=== PATIENT | female | born 1975 | race Caucasian/White ===

== ENCOUNTER 2016-12-30 20:13 | Inpatient (IN) | payer BC ==
[~2016-12-30] VITALS: Ht 172.7 cm; Wt 103.1 kg
[2016-12-30 20:49] LABS: BASO # 0.1 x10^3/uL (0.0-0.2); BASO % 1 % (0-3); EOS % 2 % (0-3); HEMATOCRIT 43.7 % (36.0-47.0); HEMOGLOBIN 15.3 g/dL (12.0-15.5); LYMPH # 3.7 x10^3/uL (1.0-4.8); LYMPH % 40 % (24-48); MEAN CORPUSCULAR HEMOGLOBIN 31 pg (25-35); MEAN CORPUSCULAR HGB CONC 35 g/dL (31-37); MEAN CORPUSCULAR VOLUME 87 fL (79-100); MONO % 8 % (0-9); NEUT % 50 % (31-73); PLATELET COUNT 302 x10^3/uL (140-400); RED BLOOD COUNT 5.02 x10^6/uL (3.50-5.40); WHITE BLOOD COUNT 9.4 x10^3/uL (4.0-11.0)
[2016-12-30 21:03] LABS: CALCIUM 9.2 mg/dL (8.5-10.1); CREATININE 0.8 mg/dL (0.6-1.0); GFR 78.3; POTASSIUM 3.5 mmol/L (3.5-5.1)
[2016-12-30 21:09] LABS: ALBUMIN 3.3 g/dL (3.4-5.0); DIRECT BILIRUBIN 0.1 mg/dL (0.0-0.2); TOTAL BILIRUBIN 0.3 mg/dL (0.2-1.0); TOTAL PROTEIN 8.1 g/dL (6.4-8.2)
[2016-12-30] MEDS ORDERED: NITROGLYCERIN SUBLINGUAL 0.4 MG BOTTLE OF 25. SL PRN ×2 (21:15→22:45)
[2016-12-30] MEDS: fentaNYL PF VIAL 100 MCG/2 ML VIAL IV PRN ×2 (21:40→23:39)
[2016-12-30] MEDS ORDERED: ASPIRIN 325 MG TABLET PO ONE (22:00)
--- NOTE | 2016-12-30 22:35 | ED.ADGEN ---
Past Medical History Past Medical History: Diabetes-Type II Past Surgical History: Hysterectomy Alcohol Use: None Drug Use: None Adult General Chief Complaint Chief Complaint: CHEST PAIN HPI HPI Patient is a 41 year old woman history of type 2 diabetes mellitus which she takes metformin, obesity, tobacco abuse, who presents to the emergency department with complaint of intermittent left chest pain times one day. Patient states the pain is located in the anterior portion of her chest, also underneath her left breast, intermittent in nature, not associated with shortness of breath, nausea, vomiting, lightheadedness or dizziness, any weakness emesis or tingling. No injuries. She states it was not related to inspiration or movement. States that it seems to come and go his own volition. Denies any similar symptoms previously. No recent travel or surgery, history of DVT or PE in herself or family members, no swelling extremities. She states that her mother developed heart problems at age 30, and that her family history is "full of heart problems". She is not previously had a stress test or catheterization. She follows with a doctor in [place]. She states she was been compliant with all medications, denies any drug or alcohol abuse. Review of Systems Review of Systems Constitutional: Denies fever or chills. [] Eyes: Denies change in visual acuity. [] HENT: Denies nasal congestion or sore throat. [] Respiratory: Denies cough or shortness of breath. [] Cardiovascular: Left anterior chest pain, no edema. GI: Denies abdominal pain, nausea, vomiting, bloody stools or diarrhea. [] : Denies dysuria. [] Musculoskeletal: Denies back pain or joint pain. [] Integument: Denies rash. [] Neurologic: Denies headache, focal weakness or sensory changes. [] Endocrine: Denies polyuria or polydipsia. [] Lymphatic: Denies swollen glands. [] Psychiatric: Denies depression or anxiety. [] Current Medications Current Medications Current Medications Medications (Trade) Dose Ordered Sig/Celena Start Time Stop Time Status Last Admin Dose Admin Fentanyl Citrate (Fentanyl 2ml Vial) 25 mcg PRN Q15MIN PRN 12/30/16 21:15 12/31/16 21:14 12/30/16 21:40 25 MCG Nitroglycerin (Nitrostat) 0.4 mg PRN Q5MIN PRN 12/30/16 21:15 12/30/16 21:39 0.4 MG Allergies Allergies Allergies Coded Allergies Type Severity Reaction Last Updated Verified No Known Drug Allergies 08/07/13 No Physical Exam Physical Exam Constitutional: Well developed, well nourished, no acute distress, non-toxic appearance. [] HENT: Normocephalic, atraumatic, bilateral external ears normal, oropharynx moist, no oral exudates, nose normal. [] Eyes: PERRLA, EOMI, conjunctiva normal, no discharge. [] Neck: Normal range of motion, no tenderness, supple, no stridor. [] Cardiovascular:Heart rate regular rhythm, no murmur, S1, S2, no rubs or gallops. No chest wall tenderness or crepitus. [] Lungs & Thorax: Bilateral breath sounds clear to auscultation, no wheezing, rhonchi, rales. [] Abdomen: Bowel sounds normal, soft, no tenderness, no masses, no pulsatile masses. [] Skin: Warm, dry, no erythema, no rash. [] Back: No tenderness, no CVA tenderness. [] Extremities: No tenderness, no cyanosis, no clubbing, ROM intact, no edema. Negative Homans sign. [] Neurologic: Alert and oriented X 3, normal motor function, normal sensory function, no focal deficits noted. [] Psychologic: Affect normal, judgement normal, mood normal. [] Current Patient Data Vital Signs Vital Signs Date Time Temp Pulse Resp B/P (MAP) Pulse Ox O2 Delivery O2 Flow Rate FiO2 12/30/16 21:40 Room Air 12/30/16 21:39 69 128/80 12/30/16 20:23 98.1 20 97 98.1 Lab Values Laboratory Tests Test 12/30/16 20:45 White Blood Count 9.4 x10^3/uL (4.0-11.0) Red Blood Count 5.02 x10^6/uL (3.50-5.40) Hemoglobin 15.3 g/dL (12.0-15.5) Hematocrit 43.7 % (36.0-47.0) Mean Corpuscular Volume 87 fL (79-100) Mean Corpuscular Hemoglobin 31 pg (25-35) Mean Corpuscular Hemoglobin Concent 35 g/dL (31-37) Red Cell Distribution Width 13.0 % (11.5-14.5) Platelet Count 302 x10^3/uL (140-400) Neutrophils (%) (Auto) 50 % (31-73) Lymphocytes (%) (Auto) 40 % (24-48) Monocytes (%) (Auto) 8 % (0-9) Eosinophils (%) (Auto) 2 % (0-3) Basophils (%) (Auto) 1 % (0-3) Neutrophils # (Auto) 4.7 x10^3uL (1.8-7.7) Lymphocytes # (Auto) 3.7 x10^3/uL (1.0-4.8) Monocytes # (Auto) 0.7 x10^3/uL (0.0-1.1) Eosinophils # (Auto) 0.2 x10^3/uL (0.0-0.7) Basophils # (Auto) 0.1 x10^3/uL (0.0-0.2) Sodium Level 137 mmol/L (136-145) Potassium Level 3.5 mmol/L (3.5-5.1) Chloride Level 101 mmol/L (98-107) Carbon Dioxide Level 26 mmol/L (21-32) Anion Gap 10 (6-14) Blood Urea Nitrogen 14 mg/dL (7-20) Creatinine 0.8 mg/dL (0.6-1.0) Estimated GFR (Cockcroft-Gault) 78.3 Glucose Level 260 mg/dL (70-99) H Calcium Level 9.2 mg/dL (8.5-10.1) Total Bilirubin 0.3 mg/dL (0.2-1.0) Direct Bilirubin 0.1 mg/dL (0.0-0.2) Aspartate Amino Transferase (AST) 23 U/L (15-37) Alanine Aminotransferase (ALT) 42 U/L (14-59) Alkaline Phosphatase 89 U/L (46-116) Troponin I Quantitative < 0.017 ng/mL (0.000-0.055) EL-Xuc-S-Type Natriuretic Peptide 54 pg/mL (0-124) Total Protein 8.1 g/dL (6.4-8.2) Albumin 3.3 g/dL (3.4-5.0) L Lipase 186 U/L (73-393) Laboratory Tests 12/30/16 20:45 Laboratory Tests 12/30/16 20:45 EKG EKG 2020: Sinus rhythm, heart rate 70 bpm, left axis deviation, QTC of 432, ID 160, QRS of 88, no ST elevations or depressions, contour abnormalities noted in the anterior lateral leads, with mild baseline artifact, abnormal ECG. Does not meet STEMI criteria. As interpreted by me. Radiology/Procedures Radiology/Procedures Chest x-ray: PA and lateral: 2 view: Normal cardiopulmonary silhouette, no infiltrates, no effusions, no pneumothorax, limited inspiratory effort, no acute disease. As interpreted by me. [] Course & Med Decision Making Course & Med Decision Making Pertinent Labs and Imaging studies reviewed. (See chart for details) Patient well-appearing, denies any inciting events or similar symptoms previously. ECG reveals left axis deviation, with no prior for comparison, initial troponin is negative. Patient received aspirin, nitroglycerin in the ED , resting comfortably and reevaluation. I did discuss with her [place] abnormal ECG, although it is not diagnostic, with a normal troponin, and a family history strong for CAD, with a personal history of tobacco abuse and diabetes, that admission to the hospital for a cardiac evaluation and ACS rule out be appropriate. Patient is agreeable with this plan. I did discuss findings as above with Dr. Lazcano of cardiology, patient did request to be seen by Dr. Lazcano, he agrees that the patient's risk factors warrant admission for evaluation versus an outpatient evaluation. Findings as above discussed with Dr. Estes of internal medicine, patient accepted to his service as a full admission to the telemetry floor, with cardiology consultation and evaluation as stated. Patient resting comfortably, in sinus rhythm on monitor, awaiting transfer to the floor. Bridge orders entered per discussion. Dragon Disclaimer Dragon Disclaimer This electronic medical record was generated, in whole or in part, using a voice recognition dictation system. Departure Impression: Primary Impression: Chest pain Disposition: ADMITTED INPATIENT Admitting Physician: Eric Estes Condition: IMPROVED INEZ CASTILLO DO December 30, 2016 22:35
[2016-12-30] MEDS ORDERED: DEXTROSE 50% 25 GM / 50ML DISP.SYRIN. IV PRN (22:45)
[2016-12-30] MEDS ORDERED: MORPHINE SULFATE 4 MG/ML DISP.SYRIN. IV PRN (22:45)
[2016-12-30] MEDS ORDERED: ACETAMINOPHEN 325 MG TABLET. PO PRN (22:45)
[2016-12-30] MEDS: ONDANSETRON PF 4 MG/2 ML VIAL. IV PRN (22:59)
[2016-12-30 23:53] VITALS: BP 136/83
[2016-12-31 00:08] LABS: BARBITURATES NEG (NEG); BENZODIAZEPINES NEG (NEG); CANNABINOIDS NEG (NEG); COCAINE NEG (NEG); METHADONE NEG (NEG); OPIATES POS (NEG); PHENCYCLIDINE NEG (NEG)
[2016-12-31] MEDS ORDERED: METF500T4 PO (00:22)
[2016-12-31] MEDS ORDERED: DAPA5TAB PO (00:23)
[2016-12-31] MEDS ORDERED: OXYB5TAB7 PO (00:24)
[2016-12-31 03:08] VITALS: BP 111/72
[2016-12-31 03:09] LABS: BASO # 0.1 x10^3/uL (0.0-0.2); BASO % 1 % (0-3); EOS % 2 % (0-3); HEMATOCRIT 40.2 % (36.0-47.0); HEMOGLOBIN 14.2 g/dL (12.0-15.5); LYMPH # 3.8 x10^3/uL (1.0-4.8); LYMPH % 37 % (24-48); MEAN CORPUSCULAR HEMOGLOBIN 31 pg (25-35); MEAN CORPUSCULAR HGB CONC 35 g/dL (31-37); MEAN CORPUSCULAR VOLUME 88 fL (79-100); MONO % 7 % (0-9); NEUT % 53 % (31-73); PLATELET COUNT 275 x10^3/uL (140-400); RED BLOOD COUNT 4.59 x10^6/uL (3.50-5.40); RED CELL DISTRIBUTION WIDTH 13.2 % (11.5-14.5); WHITE BLOOD COUNT 10.2 x10^3/uL (4.0-11.0)
[2016-12-31 03:24] LABS: CALCIUM 8.8 mg/dL (8.5-10.1); CREATININE 0.7 mg/dL (0.6-1.0); GFR 91.3; POTASSIUM 4.1 mmol/L (3.5-5.1)
--- NOTE | 2016-12-31 03:46 | ACF ---
Admit Criteria Forms Admit Criteria Forms Admit Criteria Forms CARDIOLOGY GRG Clinical Indications for Admission to Inpatient Care ( Place 'X' for any and all applicable criteria): Hospital admission is needed for appropriate care of the patient because of ANY ONE of the following (1): [ ] I. Hemodynamic instability as indicated by ALL of the following (1)(2)(3) (4)(5) [ ]a) Vital signs or other findings not as expected for chronic patient condition or baseline [ ]b) Instability indicated by ANY ONE of the following: [ ]i) Hypotension [ ]ii) Symptomatic Tachycardia unresponsive to treatment ( e.g., analgesia, fluids, sedation as indicated) [ ]iii) Inadequate perfusion indicated by ANY ONE of the following: [ ] 1) Lactic acidosis (> 2 mmol/L) [ ] 2) New abnormal capillary refill (> 3 seconds) [ ] 3) Reduced urine output [ ] 4) New altered mental status [ ]iv) Orthostatic vital sign changes unresponsive to treatment (e.g., fluids) [ ]v) IV inotropic or vasopressor medication required to maintain adequate blood pressure or perfusion [ ] II. Severe heart failure as indicated by ANY ONE of the following(17)(18) [ ]a) Respiratory distress [ ]b) Hypotension [ ]c) Anasarca (refractory to outpatient therapy) [ ]d) Cardiac arrhythmias of immediate concern [ ]e) Myocardial ischemia [ ] III. Cardiac arrhythmias or findings of immediate concern indicated by ANY ONE of the following (19)(20): [ ] a) Heart rhythms that are inherently dangerous or unstable indicated by ANY ONE of the following (21)(22)(23): [ ] i) Resuscitated ventricular fibrillation or cardiac arrest [ ] ii) Ventricular escape rhythm [ ] iii) Sustained ventricular tachycardia (30 seconds or more of ventricular rhythm at greater than 100 beats per minute) [ ] iv) Nonsustained ventricular tachycardia and ANY ONE of the following: [ ] 1) Suspected cardiac ischemia as cause or consequence of ventricular tachycardia [ ] 2) In setting of acute myocarditis [ ] b) Unstable cardiac conduction defects indicated by ANY ONE of the following(23)(24)(25) [ ] i) Type II second-degree atrioventricular block [ ]ii) Third-degree atrioventricular block [ ]iii) New-onset left bundle branch block with suspected myocardial ischemia [ ]c) Any heart rhythm and ANY ONE of the following (21)(22)(26)(27) (28) [ ] i) Continuous long-term ECG monitoring needed (e.g., initiation of drug requiring monitoring for more than 24 hours) [ ] ii) Patient has automatic implanted cardioverter defibrillator that is repeatedly firing, malfunctioning, or in need of immediate adjustment of settings beyond the scope of ambulatory or observation care [ ]d) Heart rhythms of concern due to ANY ONE of the following: [ ] i) Hypotension [ ] ii) Respiratory distress [ ] iii) Association with other significant symptoms (e.g., bradycardia with syncope or ongoing dizziness, supraventricular tachycardia with chest pain (14)(15)(17) [ ] IV. Monitoring for cardiac contusion beyond the scope of observation care needed [A](30)(31)(32) [ ] V. Surgical or device complication (e.g., valve replacement complication , pacemaker dysfunction) (35)(41)(44)(45)(46) [ ] . Inpatient palliative care needed. [B](49) Also use Inpatient Palliative Care Criteria [ ] VII. Nonbacterial thrombotic (marantic) endocarditis (36)(43)(47)(48) [X] VIII. Cardiology condition, symptom, or finding for which emergency and observation care has failed or are not considered appropriate. [ ] IX. Acute valvular disease requiring inpatient as indicated by ANY ONE of the following (41) [ ]a) Acute valvular regurgitation (42) [ ]b) Noninfectious valvulitis (43) [ ]c) Obstructive valve thrombosis [ ]d) Paravalvular leak [ ]e) Other significant valvular disorder remaining after emergency or observation level of care (as appropriate) [ ]X. Pericardial disease requiring inpatient treatment as indicated by ANY ONE of the following (33)(34)(35)(36)(37) [ ]a) Suspected tamponade (38)(39)(40) [ ]b) Hemopericardium [ ]c) Other significant pericardial disorder remaining after emergency or observation level of care (as appropriate) [ ] XI. Cardiac ischemia beyond scope of emergency and observation care. [ ] XII. Hypertension requiring inpatient treatment as indicated by ANY ONE of the following (6)(7)(8) [ ]a) SBP greater than 220 mm Hg or DBP greater than 120 mmHg despite treatment [ ]b) SBP greater than 140 mm Hg or DBP greater than 100 mm Hg with evidence of acute end organ damage as indicated by ANY ONE of the following [ ] i) Encephalopathy [ ] ii) Acute renal failure as indicated by new onset of ANY ONE of the following (9)(10)(11)(12)(13) [ ]1) 3-fold rise in serum creatinine from baseline [ ]2) Serum creatinine greater than 4 mg/dL ( 354 micromoles/L) with acute rise greater than 0.5 mg/dL (44.2 micromoles/L) [ ]3) Reduction of more than 75% in estimated glomerular filtration rate from baseline [ ]4) Estimated glomerular filtration rate less than 35 mL/min/1.73m2 (0.59 mL/sec/1.73m2) in child up to 18 years of age [ ]5) Cessation of urine output indicated by ALL of the following [ ]A. Adequate volume status [ ]B. Inadequate urine output as indicated by ANY ONE of the following [ ]a. Urine output less than 0.3 mL/kg/hr for 24 hours [ ]b. Anuria (urine output less than 0.1 mL/kg/hr) for 12 hours [ ] iii) Aortic dissection [ ] iv) Myocardial Ischemia [ ] v) Left ventricular heart failure [ ]vi) Retinal Hemorrhage [ ]vii) Other significant finding [ ]c) Hypertension in child requiring inpatient treatment as indicated by ALL of the following(14)(15)(16) [ ] i) Outpatient treatment not effective, not available, or not appropriate [ ]ii) SBP or DBP greater than 95th percentile for age [ ]iii) Evidence of acute end organ damage as indicated by ANY ONE of the following [ ]1) Altered mental status [ ]2) Acute renal failure as indicated by new onset of ANY ONE of the following(9)(10)(11)(12)(13) [ ]A. 3-fold rise in serum creatinine from baseline [ ]B. Serum creatinine greater than 4 mg/dL (354 micromoles/L) with acute rise greater than 0.5 mg/dL (44.2 micromoles/L) [ ]C. Reduction of more than 75% in estimated glomerular filtration rate from baseline [ ]D. Estimated glomerular filtration rate less than 35 mL/min/1.73m2 (0.59 mL/sec/1.73m2) in child up to 18 years of age [ ]E. Cessation of urine output indicated by ALL of the following [ ]a. Adequate volume status [ ]b. Inadequate urine output as indicated by ANY ONE of the following [ ]i) Urine output less than 0.3 mL/kg/hr for 24 hours [ ]ii) Anuria ( urine output less than 0.1 mL/kg/hr) for 12 hours [ ]3) Severe headache [ ]4) Visual disturbance [ ]5) Retinal hemorrhage [ ]6) Other significant finding [ ]XIII. Complications of transplanted heart indicated by ANY ONE of the following(61): [ ]a) Acute graft rejection requiring inpatient management (eg, intravenous immunosuppression)(62)(63) [ ]b) Acute graft heart failure indicated by ANY ONE of the following(64): [ ]i) Hemodynamic instability [ ]ii) Cardiac arrhythmias of immediate concern [ ]iii) Pulmonary edema that is very severe (eg, mechanical ventilation needed, imminent or likely, need for 100% oxygen to keep oxygen saturation above 90%) [ ]iv) Pulmonary edema that is persistent as indicated by ALL of the following: [ ]1) New need for oxygen therapy to keep oxygen saturation above 90% (or increased FiO2 need from baseline) [ ]2) Has not improved sufficiently with emergency department or observation care IV diuretics or other heart failure treatments[E] [ ]v) Altered mental status that is severe or persistent [ ]vi) Increased creatinine (new on laboratory test) with reduction of more than 50% in estimated glomerular filtration rate from baseline [ ]vii) Progressively (ongoing) rising creatinine (known from past laboratory test) with reduction of more than 25% in estimated glomerular filtration rate from baseline [ ]viii) Acute renal failure [ ]ix) Acute peripheral ischemia (eg, examination shows pulseless, cool, mottled, or cyanotic extremity) [ ]x) Pulmonary artery catheter monitoring needed [ ]xi) Other sign or symptom of heart failure requiring inpatient treatment (ie, too severe or not responsive to outpatient and observation care treatment) [ ]c) Infection requiring inpatient management (eg, Hemodynamic instability, need for intravenous antimicrobial treatment)(66)(67)(68)(69)(70) [ ]d) Cardiac allograft vasculopathy requiring inpatient management ( eg evidence of cardiac ischemia)(71) [ ]e) Other complication of transplanted heart (eg, stroke, severe pulmonary hypertension, severe valvular dysfunction) requiring inpatient management(72) The original [facility] content created by [facility] has been revised. The portions of the content which have been revised are identified through the use of italic text or in bold, and [facility] [employer] has neither reviewed nor approved the modified material. All other unmodified content is copyright [facility]. Please see references footnoted in the original [facility] edition 2016 WALKER MONTAÑO December 31, 2016 03:46
--- NOTE | 2016-12-31 06:21 | EKG ---
[facility] [address] [place] [address] Test Date: 2016-12-30 Test Time: 20:20:35 Pat Name: MARTINEZ JACINTO Department: Room: [facility] Gender: F Private Household Worker: : 1975 Requested By: INEZ CASTILLO Order Number: [id number] Reading MD: Marlon Obrien Measurements Intervals [place] Rate: 78 P: 37 NV: 160 QRS: -6 QRSD: 88 T: 14 QT: 376 QTc: 432 Interpretive Statements SINUS RHYTHM Electronically Signed On 01-01-2017 10:41:01 CDT by Marlon Obrien
[2016-12-31 07:00] VITALS: BP 120/83
[2016-12-31] MEDS: INSULIN ASPART 300 UNITS/3 ML INSULN.PEN SQ SCH ×3 (07:38→17:00)
--- NOTE | 2016-12-31 08:06 | RAD ---
Chest, 2 views, 12/30/2016: History: Left-sided chest pain The depth of inspiration on the PA view is suboptimal. The heart size and pulmonary vascularity are normal. No pulmonary infiltrates are seen. There is no evidence of pleural fluid. Mild spurring is present in the spine. IMPRESSION: No acute cardiopulmonary abnormality is detected.
--- NOTE | 2016-12-31 08:19 | EKG ---
[facility] [address] [place] [address] Test Date: 2016-12-31 Test Time: 07:39:54 Pat Name: MARTINEZ JACINTO Department: Room: [facility] Gender: F Manufacturing Planner: RIAN : 1975 Requested By: INEZ CASTILLO Order Number: [id number] Reading MD: Marlon Obrien Measurements Intervals [place] Rate: 49 P: 33 ME: 178 QRS: 8 QRSD: 92 T: 25 QT: 454 QTc: 409 Interpretive Statements SINUS BRADYCARDIA Electronically Signed On 01-01-2017 10:42:53 CDT by Marlon Obrien
[2016-12-31] MEDS: ONDANSETRON PF 4 MG/2 ML VIAL. IV PRN ×2 (10:59→16:15)
[2016-12-31 11:00] VITALS: BP 117/78
[2016-12-31] MEDS ORDERED: IOHEXOL 300 MG/ML 75 ML VIAL IV ONE (16:45)
[2016-12-31] MEDS ORDERED: CONTRAST GIVEN MC PRN (17:00)
--- NOTE | 2016-12-31 17:10 | CARD ---
APPROVED REPORT EXAM: Two-dimensional and M-mode echocardiogram with Doppler and color Doppler. Other Information Quality : GoodHR: 55bpm Rhythm : Bradycardia INDICATION Chest Pain RISK FACTORS Obesity Smoking 2D DIMENSIONS RVDd2.8 (2.9-3.5cm)Left Atrium(2D)3.3 (1.6-4.0cm) IVSd1.0 (0.7-1.1cm)Aortic Root(2D)3.0 (2.0-3.7cm) LVDd4.7 (3.9-5.9cm)LVOT Diameter2.4 (1.8-2.4cm) PWd1.0 (0.7-1.1cm)LVDs3.1 (2.5-4.0cm) FS (%) 35.4 %SV67.6 ml LVEF(%)65.0 (>50%) Aortic Valve AoV Peak Dion.141.8cm/sAoV VTI29.8cm AO Peak GR.8.0mmHgLVOT Peak Dion.112.0cm/s AO Mean GR.4mmHgAVA (VMAX)3.50cm2 Mitral Valve MV E Vtfonqop42.2cm/sMV E Peak Gr.3mmHg MV DECEL [id number] A Dnzuspby02.4cm/s MV E Mean Gr.1mmHgE/A Ratio2.1 MV A [id number] Pulmonary Valve PV Peak Yrrlzkzm970.0cm/s Pulmonary Vein S1 Wdnujntt16.8cm/sD2 Ibbrciye74.7cm/s PVa [id number] LEFT VENTRICLE The left ventricle is normal size. There is normal left ventricular wall thickness. The left ventricu lar systolic function is normal and the ejection fraction is within normal range. The Ejection Fracti on is 65%. There is normal LV segmental wall motion. The left ventricular diastolic function and fill ing is normal for age. RIGHT VENTRICLE The right ventricle is normal size. There is normal right ventricular wall thickness. The right ventr icular systolic function is normal. ATRIA The left atrium size is normal. The right atrium size is normal. AORTIC VALVE The aortic valve is normal in structure and function. Doppler and Color Flow revealed no significant aortic regurgitation. There is no significant aortic valvular stenosis. MITRAL VALVE The mitral valve is normal in structure and function. There is no evidence of mitral valve prolapse. There is no mitral valve stenosis. Doppler and Color Flow revealed no mitral valve regurgitation note d. TRICUSPID VALVE The tricuspid valve is normal in structure and function. Doppler and Color Flow revealed no tricuspid valve regurgitation noted. There is no pulmonary hypertension. PULMONIC VALVE Doppler and Color Flow revealed mild pulmonic valvular regurgitation. There is no pulmonic valvular s tenosis. GREAT VESSELS The aortic root is normal in size. The ascending aorta is normal in size. The pulmonary artery is nor mal. The IVC is normal in size and collapses >50% with inspiration. PERICARDIAL EFFUSION There is no evidence of significant pericardial effusion. Critical Notification Critical Value: No <Conclusion> The left ventricular systolic function is normal and the ejection fraction is within normal range. The Ejection Fraction is 65%. The left atrium size is normal. The right atrium size is normal. The aortic valve is normal in structure and function. The mitral valve is normal in structure and function. The tricuspid valve is normal in structure and function. Doppler and Color Flow revealed mild pulmonic valvular regurgitation. There is no evidence of significant pericardial effusion.
--- NOTE | 2016-12-31 17:10 | RAD ---
PROCEDURE CT head with and without contrast dated 12/31/2016. HISTORY Left-sided chest pain and breast pain with headache. TECHNIQUE Contiguous axial imaging of the head was performed with and without the administration of 70 cc Omnipaque 300.Exposure: One or more of the following individualized dose reduction techniques were utilized for this exam: 1. Automated exposure control. 2. Adjustment of the mA and/or kV according to patient size. 3. Use of iterative reconstruction technique. COMPARISON None. FINDINGS Ventricles and sulci are within normal limits for age. No midline shift or mass effect. Brain parenchyma is of normal attenuation. No hemorrhage or extra-axial collection. Posterior fossa and brainstem unremarkable. Postcontrast imaging shows no abnormal enhancement or mass. Dural venous sinuses are grossly patent. Visualized paranasal sinuses and mastoid air cells are clear. No acute calvarial abnormality. IMPRESSION No evidence of acute intracranial abnormality. Electronically signed by: Chan Farah (December 31, 2016 17:08:37)
[2016-12-31] MEDS ORDERED: FAMO-63 PO (17:59)
[2016-12-31] MEDS ORDERED: LORA0.5T96 PO (17:59)
[2016-12-31] MEDS ORDERED: ACET325T9 PO (17:59)
--- NOTE | 2016-12-31 18:02 | PDOC2 ---
CONSULT Date of Consult Date of Consult DATE: 12/31/16 TIME: 17:56 Reason for Consult Reason for Consult: Chest pain Referring Physician Referring Physician: Dr. Stone Identification/Chief Complaint Chief Complaint Chest pain History of Present Illness Reason for Visit: This patient is a 41-year-old lady with a known history of diabetes that is a smoker and has a very strong family history of cardiac problems with her mother having had an MA in her 30s. The patient has been having for about 2 days and on and off left-sided chest pains that is like a pressure or heaviness over the left breast and into the left shoulder. The pain has changed to being a constant pain for over 24 hours and this brought her into the emergency room. At the time that I saw her she was still having the discomfort. Her EKG did not show any acute findings and her enzymes have been negative. The patient denies any previous cardiac problems. Past Medical History Endocrine: Diabetes Current Problem List Problem List Problems Medical Problems: (1) Chest pain Status: Acute Current Medications Current Medications Current Medications Nitroglycerin (Nitrostat) 0.4 mg PRN Q5MIN PRN SL CHEST PAIN Last administered on 12/30/16 21:39; Start 12/30/16 at 21:15 Fentanyl Citrate (Fentanyl 2ml Vial) 25 mcg PRN Q15MIN PRN IV PAIN GREATER THAN 3/10 Last administered on 12/30/16 23:39; Start 12/30/16 at 21:15; Stop at 16:11; Status DC Aspirin (Ramses Aspirin) 325 mg 1X ONCE PO Last administered on 12/30/16 21:38 ; Start 12/30/16 at 22:00; Stop 12/30/16 at 22:01; Status DC Ondansetron HCl (Zofran) 4 mg PRN Q8HRS PRN IV NAUSEA/VOMITING Last administered on 12/31/16 16:15; Start 12/30/16 at 22:45; Stop 12/31/16 at 22:44 Morphine Sulfate 4 mg PRN Q2HR PRN IV SEVERE PAIN Last administered on 10:59; Start 12/30/16 at 22:45; Stop 12/31/16 at 16:11; Status DC Acetaminophen (Tylenol) 650 mg PRN Q4HRS PRN PO FEVER Last administered on 12/31 16:15; Start 12/30/16 at 22:45; Stop 12/31/16 at 22:44 Nitroglycerin (Nitrostat) 0.4 mg PRN Q5MIN PRN SL CHEST PAIN; Start 12/30/16 at 22:45; Stop 12/31/16 at 13:15; Status DC Insulin Aspart (NovoLOG) 0-5 UNITS TIDWMEALS SQ ; Start 12/31/16 at 08:00 Dextrose (Dextrose 50%-Water Syringe) 12.5 gm PRN Q15MIN PRN IV SEE COMMENTS; Start 12/30/16 at 22:45 Lorazepam (Ativan) 0.5 mg 1X ONCE IV Last administered on 12/31/16 16:45; Start 12/31/16 at 16:45; Stop 12/31/16 at 16:46; Status DC Iohexol (Omnipaque 300 Mg/ml) 75 ml 1X ONCE IV Last administered on 12/31/16 17:00; Start 12/31/16 at 16:45; Stop 12/31/16 at 16:46; Status DC Info (Do NOT chart on this entry -- for MONITORING) 1 each PRN DAILY PRN MC SEE COMMENTS; Start 12/31/16 at 17:00; Stop 01/02/17 at 16:59 Active Scripts Active Reported Oxybutynin Chloride 5 Mg Tablet 2 Tab PO DAILY Farxiga (Dapagliflozin Propanediol) 5 Mg Tablet 5 Mg PO HS Metformin Hcl 500 Mg Tablet 500 Mg PO BIDWMEALS Allergies Allergies: Coded Allergies: No Known Drug Allergies (Unverified , 08/07/13) Physical Exam General: Alert, Oriented X3, Cooperative, No acute distress HEENT: PERRLA, Mucous membr. moist/pink Lungs: Clear to auscultation, Normal air movement Heart: Regular rate, Normal S1, Normal S2 Abdomen: Normal bowel sounds, Soft Extremities: No edema Psych/Mental Status: Mental status NL Vitals VITALS Vital Signs Date Time Temp Pulse Resp B/P (MAP) Pulse Ox O2 Delivery O2 Flow Rate FiO2 12/31/16 15:02 Room Air 12/31/16 11:00 98.1 60 16 117/78 (91) 94 98.1 Labs Labs Laboratory Tests Test 12/30/16 20:45 12/30/16 23:40 12/31/16 02:50 12/31/16 07:34 White Blood Count 9.4 x10^3/uL (4.0-11.0) 10.2 x10^3/uL (4.0-11.0) Red Blood Count 5.02 x10^6/uL (3.50-5.40) 4.59 x10^6/uL (3.50-5.40) Hemoglobin 15.3 g/dL (12.0-15.5) 14.2 g/dL (12.0-15.5) Hematocrit 43.7 % (36.0-47.0) 40.2 % (36.0-47.0) Mean Corpuscular Volume 87 fL (79-100) 88 fL (79-100) Mean Corpuscular Hemoglobin 31 pg (25-35) 31 pg (25-35) Mean Corpuscular Hemoglobin Concent 35 g/dL (31-37) 35 g/dL (31-37) Red Cell Distribution Width 13.0 % (11.5-14.5) 13.2 % (11.5-14.5) Platelet Count 302 x10^3/uL (140-400) 275 x10^3/uL (140-400) Neutrophils (%) (Auto) 50 % (31-73) 53 % (31-73) Lymphocytes (%) (Auto) 40 % (24-48) 37 % (24-48) Monocytes (%) (Auto) 8 % (0-9) 7 % (0-9) Eosinophils (%) (Auto) 2 % (0-3) 2 % (0-3) Basophils (%) (Auto) 1 % (0-3) 1 % (0-3) Neutrophils # (Auto) 4.7 x10^3uL (1.8-7.7) 5.5 x10^3uL (1.8-7.7) Lymphocytes # (Auto) 3.7 x10^3/uL (1.0-4.8) 3.8 x10^3/uL (1.0-4.8) Monocytes # (Auto) 0.7 x10^3/uL (0.0-1.1) 0.7 x10^3/uL (0.0-1.1) Eosinophils # (Auto) 0.2 x10^3/uL (0.0-0.7) 0.2 x10^3/uL (0.0-0.7) Basophils # (Auto) 0.1 x10^3/uL (0.0-0.2) 0.1 x10^3/uL (0.0-0.2) Sodium Level 137 mmol/L (136-145) 138 mmol/L (136-145) Potassium Level 3.5 mmol/L (3.5-5.1) 4.1 mmol/L (3.5-5.1) Chloride Level 101 mmol/L (98-107) 103 mmol/L (98-107) Carbon Dioxide Level 26 mmol/L (21-32) 27 mmol/L (21-32) Anion Gap 10 (6-14) 8 (6-14) Blood Urea Nitrogen 14 mg/dL (7-20) 16 mg/dL (7-20) Creatinine 0.8 mg/dL (0.6-1.0) 0.7 mg/dL (0.6-1.0) Estimated GFR (Cockcroft-Gault) 78.3 91.3 Glucose Level 260 mg/dL (70-99) 217 mg/dL (70-99) Calcium Level 9.2 mg/dL (8.5-10.1) 8.8 mg/dL (8.5-10.1) Total Bilirubin 0.3 mg/dL (0.2-1.0) Direct Bilirubin 0.1 mg/dL (0.0-0.2) Aspartate Amino Transf (AST/SGOT) 23 U/L (15-37) Alanine Aminotransferase (ALT/SGPT) 42 U/L (14-59) Alkaline Phosphatase 89 U/L (46-116) Troponin I Quantitative < 0.017 ng/mL (0.000-0.055) < 0.017 ng/mL (0.000-0.055) TN-Myv-B-Type Natriuretic Peptide 54 pg/mL (0-124) Total Protein 8.1 g/dL (6.4-8.2) Albumin 3.3 g/dL (3.4-5.0) Lipase 186 U/L (73-393) Urine Opiates Screen Pos (NEG) Urine Methadone Screen Neg (NEG) Urine Barbiturates Neg (NEG) Urine Phencyclidine Screen Neg (NEG) Urine Amphetamine/Methamphetamine Neg (NEG) Urine Benzodiazepines Screen Neg (NEG) Urine Cocaine Screen Neg (NEG) Urine Cannabinoids Screen Neg (NEG) Urine Ethyl Alcohol Neg (NEG) Glucose (Fingerstick) 184 mg/dL (70-99) Test 12/31/16 07:55 12/31/16 11:50 12/31/16 16:49 Troponin I Quantitative < 0.017 ng/mL (0.000-0.055) Glucose (Fingerstick) 190 mg/dL (70-99) 204 mg/dL (70-99) Laboratory Tests Test 12/30/16 20:45 12/30/16 23:40 12/31/16 02:50 12/31/16 07:34 White Blood Count 9.4 x10^3/uL (4.0-11.0) 10.2 x10^3/uL (4.0-11.0) Red Blood Count 5.02 x10^6/uL (3.50-5.40) 4.59 x10^6/uL (3.50-5.40) Hemoglobin 15.3 g/dL (12.0-15.5) 14.2 g/dL (12.0-15.5) Hematocrit 43.7 % (36.0-47.0) 40.2 % (36.0-47.0) Mean Corpuscular Volume 87 fL (79-100) 88 fL (79-100) Mean Corpuscular Hemoglobin 31 pg (25-35) 31 pg (25-35) Mean Corpuscular Hemoglobin Concent 35 g/dL (31-37) 35 g/dL (31-37) Red Cell Distribution Width 13.0 % (11.5-14.5) 13.2 % (11.5-14.5) Platelet Count 302 x10^3/uL (140-400) 275 x10^3/uL (140-400) Neutrophils (%) (Auto) 50 % (31-73) 53 % (31-73) Lymphocytes (%) (Auto) 40 % (24-48) 37 % (24-48) Monocytes (%) (Auto) 8 % (0-9) 7 % (0-9) Eosinophils (%) (Auto) 2 % (0-3) 2 % (0-3) Basophils (%) (Auto) 1 % (0-3) 1 % (0-3) Neutrophils # (Auto) 4.7 x10^3uL (1.8-7.7) 5.5 x10^3uL (1.8-7.7) Lymphocytes # (Auto) 3.7 x10^3/uL (1.0-4.8) 3.8 x10^3/uL (1.0-4.8) Monocytes # (Auto) 0.7 x10^3/uL (0.0-1.1) 0.7 x10^3/uL (0.0-1.1) Eosinophils # (Auto) 0.2 x10^3/uL (0.0-0.7) 0.2 x10^3/uL (0.0-0.7) Basophils # (Auto) 0.1 x10^3/uL (0.0-0.2) 0.1 x10^3/uL (0.0-0.2) Sodium Level 137 mmol/L (136-145) 138 mmol/L (136-145) Potassium Level 3.5 mmol/L (3.5-5.1) 4.1 mmol/L (3.5-5.1) Chloride Level 101 mmol/L (98-107) 103 mmol/L (98-107) Carbon Dioxide Level 26 mmol/L (21-32) 27 mmol/L (21-32) Anion Gap 10 (6-14) 8 (6-14) Blood Urea Nitrogen 14 mg/dL (7-20) 16 mg/dL (7-20) Creatinine 0.8 mg/dL (0.6-1.0) 0.7 mg/dL (0.6-1.0) Estimated GFR (Cockcroft-Gault) 78.3 91.3 Glucose Level 260 mg/dL (70-99) 217 mg/dL (70-99) Calcium Level 9.2 mg/dL (8.5-10.1) 8.8 mg/dL (8.5-10.1) Total Bilirubin 0.3 mg/dL (0.2-1.0) Direct Bilirubin 0.1 mg/dL (0.0-0.2) Aspartate Amino Transf (AST/SGOT) 23 U/L (15-37) Alanine Aminotransferase (ALT/SGPT) 42 U/L (14-59) Alkaline Phosphatase 89 U/L (46-116) Troponin I Quantitative < 0.017 ng/mL (0.000-0.055) < 0.017 ng/mL (0.000-0.055) CR-Uep-I-Type Natriuretic Peptide 54 pg/mL (0-124) Total Protein 8.1 g/dL (6.4-8.2) Albumin 3.3 g/dL (3.4-5.0) Lipase 186 U/L (73-393) Urine Opiates Screen Pos (NEG) Urine Methadone Screen Neg (NEG) Urine Barbiturates Neg (NEG) Urine Phencyclidine Screen Neg (NEG) Urine Amphetamine/Methamphetamine Neg (NEG) Urine Benzodiazepines Screen Neg (NEG) Urine Cocaine Screen Neg (NEG) Urine Cannabinoids Screen Neg (NEG) Urine Ethyl Alcohol Neg (NEG) Glucose (Fingerstick) 184 mg/dL (70-99) Test 12/31/16 07:55 12/31/16 11:50 12/31/16 16:49 Troponin I Quantitative < 0.017 ng/mL (0.000-0.055) Glucose (Fingerstick) 190 mg/dL (70-99) 204 mg/dL (70-99) Assessment/Plan Assessment/Plan This patient comes in with an atypical chest pain that has been constant for over 24 hours and she has had 3 sets of troponins that are negative. An echocardiogram was done that is normal, normal left ventricular ejection fraction and no significant valvular disease. At this time with the patient's and son's having being negative and a normal echocardiogram with a pain that was constant for over 24 hours I do not think that this is cardiac in nature. Consider a noncardiac workup. If the patient needs a stress test it may be done as an outpatient. Thank you very much for asking me to participate in the care of this patient TRINA HALL MD December 31, 2016 18:02
[2016-12-31] MEDS ORDERED: HYDR-971 PO (18:28)
--- NOTE | 2016-12-31 20:56 | SSS ---
ADMIT DATE: 12/30/2016 CHIEF COMPLAINT: Chest pain. HISTORY OF PRESENT ILLNESS: The patient is a 41-year-old obese woman with past medical history of diabetes mellitus, tobacco abuse, who presented to the Emergency Room with complaint of intermittent left chest pain going on for about a day. She relates that pain is actually located in her mid-lower sternum radiating into the left chest. This feels tight, pressure-like. She relates no associated symptoms including shortness of breath, nausea, vomiting, dizziness, or radiation of pain into the jaw or shoulder. The episodes last only shortly. It seems to come and go unrelated to anything she does. The morphine she receives in the Emergency Room did help, but did not like how the medication made her feel. PAST MEDICAL HISTORY: Diabetes type 2. She is status post hysterectomy at age 32 and cervical cancer. FAMILY HISTORY: Diabetes. 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 Denies any other drug or alcohol use. ALLERGIES: No known drug allergies. MEDICATIONS: MAR reconciled with home medications. REVIEW OF SYSTEMS: The patient relates pain actually still comes and goes. She also has developed a severe sudden onset headache over the anterior crown of her head, associated with severe nausea and retching. PHYSICAL EXAMINATION: VITAL SIGNS: Currently show a blood pressure of 117/78, heart rate of 60, respiratory rate at 16. She is afebrile. GENERAL: This is an obese 41-year-old woman, alert and oriented, in no acute distress. HEENT: Shows no scleral icterus. NECK: Supple. LUNGS: Clear to auscultation bilaterally. HEART: Regular rate and rhythm. ABDOMEN: Obese, positive bowel sounds, no palpable organomegaly or masses. EXTREMITIES: Show no edema. SKIN: Warm, soft and dry without any rash. LABORATORY DATA: CBC with a WBC of 10.2, hemoglobin 14.2, platelets of 275. BUN and creatinine of 16 and 0.7. Normal electrolytes. Glucose at 260, 217, and 184. Troponins negative x 3. IMAGING STUDIES: Chest x-ray revealed no cardiopulmonary abnormality. Echocardiogram showed normal ejection fraction of 60. Left ventricular diastolic dysfunction and filling is normal for age. CT of the head with and without shows no acute intracranial abnormality. ASSESSMENT AND PLAN: The patient is a 41-year-old woman presented with intermittent atypical chest pain. She ruled out for acute coronary syndrome. Echo is completely normal without any wall motion abnormality. No further cardiac workup is indicated. Etiology of her symptoms is more than likely gastrointestinal. Discussed with her that she may have gastroesophageal reflux disease, at which point she relates that she cannot eat certain things such as pizza because of stomach upset, plus/minus esophageal spasms. I advised her to take Pepcid twice a day to see if that helps with her symptoms. Her headache was a sudden onset and essentially resolved with Tylenol and a low dose Ativan. Discussed with her that with negative CT, I suspect these may have been a stress headaches. I gave her a prescription of 10 pills of 0.5 mg Ativan and discussed with her to try these occasionally if she feels stressed or has more chest pain. She will discuss this with her primary care physician as well. Should Ativan help, selective serotonin reuptake inhibitors would be the appropriate route to go. She can take Tylenol and/or Excedrin for headaches, otherwise. DISCHARGE DIAGNOSIS: Gastroesophageal reflux disease, atypical chest pain. DISCHARGE DISPOSITION: To home. DISCHARGE CONDITION: Improved. DISCHARGE MEDICATIONS: Please refer to MAR. DISCHARGE INSTRUCTIONS: The patient will follow up with her PCP within the next week. LOREN GATES MD DR: UR/nts JOB#: [id number] / [id number] SHALONDA Clark NP MTDD
== END 2016-12-31 18:35 | disposition home or self-care (01) | DRG 313 ==
LOC: ER 20:13 → 2 SOUTH 21:50
PROVIDERS: ADMIT Internal Medicine; ATTEND Internal Medicine
DX: R07.89 Other chest pain (principal); E11.9 Type 2 diabetes mellitus without complications; Z90.710 Acquired absence of both cervix and uterus; E66.9 Obesity, unspecified; F17.210 Nicotine dependence, cigarettes, uncomplicated; K21.9 Gastro-esophageal reflux disease without esophagitis; K22.4 Dyskinesia of esophagus; Z82.49 Family history of ischemic heart disease and other diseases of the circulatory system; Z83.3 Family history of diabetes mellitus; Z85.41 Personal history of malignant neoplasm of cervix uteri
CPT/HCPCS: 36415; 70470; 71020; 80048; 80076; 82962; 83690; 83880; 84484; 85027; 93005; 93306; 99406; G0481; J1815; J2060; J2270; J2405; J3010; Q9967; 99285-25